=== PATIENT | male | born 1960 ===

== ENCOUNTER 2019-10-01 02:34 | Inpatient (IN) ==
[2019-10-01] MEDS ORDERED: ACETAMINOPHEN 325 MG TABLET PO PRN (05:42)
[2019-10-01] MEDS ORDERED: DEXTROSE 50% 25 GM/50 ML VIAL IV PRN (05:42)
[2019-10-01] MEDS ORDERED: GLUCAGON 1 MG VIAL IM PRN (05:42)
[2019-10-01] MEDS ORDERED: MULTIVITAMIN PO SCH (09:00)
[2019-10-01] MEDS ORDERED: FUROSEMIDE 40 MG TABLET PO SCH (09:00)
[2019-10-01] MEDS: HEPARIN DRIP 25,000 UNITS/500 ML PREMIX IV SCH ×2 (09:26→10:15)
[2019-10-01] MEDS: INSULIN REGULAR 100 UNIT/ML SUBCUT SCH ×4 (09:26→21:57)
[2019-10-01] MEDS: MULTIVITAMIN (CENTRUM) TABLET PO SCH (09:32)
[2019-10-01] MEDS: MINOXIDIL 2.5 MG TABLET PO SCH ×2 (09:32→21:57)
[2019-10-01] MEDS: amLODIPine 10 MG TABLET PO SCH (09:33)
[2019-10-01] MEDS: GABAPENTIN 100 MG CAPSULE PO SCH ×3 (09:33→21:57)
[2019-10-01] MEDS: ASPIRIN EC 81 MG TABLET PO SCH (09:33)
[2019-10-01] MEDS: PANTOPRAZOLE 40 MG TABLET PO SCH (09:33)
[2019-10-01] MEDS: METOPROLOL TARTRATE 25 MG TABLET PO SCH ×2 (09:33→21:58)
[2019-10-01] MEDS: DOCUSATE/SENNA 50-8.6 MG TABLET PO SCH ×2 (09:33→21:57)
[2019-10-01 09:48] LABS: Basophils % 0.4 % (0.0-0.8); Eosinophils # 0.3 10*3/uL (0.0-0.87); Eosinophils % 4.8 % (0.00-10.9); Hematocrit 28.8 VOL% (42.0-52.0); Hemoglobin 9.2 GM/DL (14.0-18.0); Immature Granulocytes % 0.4 %; Immature Granulocytes Absolute 0.02 #; Lymphocytes # 1.8 10*3/uL (1.4-4.0); Lymphocytes % 34.9 % (21.2-54.2); Mean Corpuscular HGB Conc 31.9 GM/DL (32-36); Mean Corpuscular Volume 92.9 FL (87-102); Mean Platelet Volume 9.8 FL (9.6-12.0); Monocytes % 11.1 % (1.7-12.7); Neutrophils % 48.4 % (38.7-73.9); Platelet Count 157 T/CUMM (130-400); Red Cell Distribution Width 14.6 % (9.3-17.3); White Blood Count 5.2 T/CUMM (4-12)
[2019-10-01 10:07] LABS: Calcium 7.9 MG/DL (8.5-10.1); Osmolality,Calculated 302.3 MOS/KG (273-304)
[2019-10-01] MEDS: HEPARIN 5,000 UNIT/1 ML VIAL SUBCUT SCH ×2 (11:58→22:34)
[2019-10-01 12:21] LABS: Troponin I < 0.015 NG/ML (0.00-0.045)
[2019-10-01] MEDS: FUROSEMIDE 40 MG/4 ML VIAL IV SCH (16:23)
[2019-10-01] MEDS: SIMVASTATIN 40 MG TABLET PO SCH (21:57)
[2019-10-02 06:37] LABS: Basophils % 0.6 % (0.0-0.8); Eosinophils # 0.3 10*3/uL (0.0-0.87); Eosinophils % 5.3 % (0.00-10.9); Hematocrit 27.5 VOL% (42.0-52.0); Hemoglobin 8.9 GM/DL (14.0-18.0); Immature Granulocytes % 0.2 %; Immature Granulocytes Absolute 0.01 #; Lymphocytes # 1.3 10*3/uL (1.4-4.0); Lymphocytes % 24.6 % (21.2-54.2); Mean Corpuscular HGB Conc 32.4 GM/DL (32-36); Mean Corpuscular Volume 93.5 FL (87-102); Mean Platelet Volume 9.9 FL (9.6-12.0); Monocytes % 10.3 % (1.7-12.7); Platelet Count 162 T/CUMM (130-400); Red Blood Count 2.94 MC/CUMM (3.8-5.5); Red Cell Distribution Width 14.6 % (9.3-17.3); White Blood Count 5.1 T/CUMM (4-12)
[2019-10-02 06:59] LABS: Bilirubin,Total 1.1 MG/DL (0.2-1.0); Calcium 7.8 MG/DL (8.5-10.1); Osmolality,Calculated 302.1 MOS/KG (273-304); Total Protein 7.3 G/DL (6.4-8.3); Troponin I < 0.015 NG/ML (0.00-0.045)
[2019-10-02] MEDS: INSULIN REGULAR 100 UNIT/ML SUBCUT SCH ×4 (08:15→21:11)
[2019-10-02] MEDS: ASPIRIN EC 81 MG TABLET PO SCH (09:35)
[2019-10-02] MEDS: GABAPENTIN 100 MG CAPSULE PO SCH ×3 (09:35→21:11)
[2019-10-02] MEDS: PANTOPRAZOLE 40 MG TABLET PO SCH (09:35)
[2019-10-02] MEDS: MULTIVITAMIN (CENTRUM) TABLET PO SCH (09:35)
[2019-10-02] MEDS: FUROSEMIDE 40 MG/4 ML VIAL IV SCH ×2 (09:36→16:49)
[2019-10-02] MEDS: amLODIPine 10 MG TABLET PO SCH (09:36)
[2019-10-02] MEDS: MINOXIDIL 2.5 MG TABLET PO SCH ×2 (09:36→21:12)
[2019-10-02] MEDS: METOPROLOL TARTRATE 25 MG TABLET PO SCH ×2 (09:36→21:12)
[2019-10-02] MEDS: DOCUSATE/SENNA 50-8.6 MG TABLET PO SCH ×2 (09:36→21:12)
[2019-10-02] MEDS: HEPARIN 5,000 UNIT/1 ML VIAL SUBCUT SCH ×2 (16:49→23:16)
[2019-10-02] MEDS: SIMVASTATIN 40 MG TABLET PO SCH (21:12)
[2019-10-03] MEDS: INSULIN REGULAR 100 UNIT/ML SUBCUT SCH ×4 (08:00→20:37)
[2019-10-03] MEDS: MINOXIDIL 2.5 MG TABLET PO SCH ×2 (08:01→20:40)
[2019-10-03] MEDS: DOCUSATE/SENNA 50-8.6 MG TABLET PO SCH ×2 (08:01→20:39)
[2019-10-03] MEDS: GABAPENTIN 100 MG CAPSULE PO SCH ×3 (08:01→20:40)
[2019-10-03] MEDS: PANTOPRAZOLE 40 MG TABLET PO SCH (08:01)
[2019-10-03] MEDS: ASPIRIN EC 81 MG TABLET PO SCH (08:01)
[2019-10-03] MEDS: METOPROLOL TARTRATE 25 MG TABLET PO SCH (08:01)
[2019-10-03] MEDS: MULTIVITAMIN (CENTRUM) TABLET PO SCH (08:01)
[2019-10-03] MEDS: amLODIPine 10 MG TABLET PO SCH (08:01)
[2019-10-03] MEDS: FUROSEMIDE 40 MG/4 ML VIAL IV SCH (08:02)
[2019-10-03] MEDS: ALBUTEROL/IPRATROPIUM 3 ML NEB RESP TX SCH ×4 (12:00→23:12)
[2019-10-03] MEDS: HEPARIN 5,000 UNIT/1 ML VIAL SUBCUT SCH ×2 (12:48→23:27)
[2019-10-03] MEDS: methylPREDNISolone SOD SUC 40 MG/1 ML VIAL IV SCH ×2 (12:50→20:38)
[2019-10-03 13:22] LABS: Basophils % 0.6 % (0.0-0.8); Eosinophils # 0.3 10*3/uL (0.0-0.87); Hematocrit 28.4 VOL% (42.0-52.0); Hemoglobin 9.2 GM/DL (14.0-18.0); Immature Granulocytes % 0.3 %; Immature Granulocytes Absolute 0.02 #; Lymphocytes # 1.5 10*3/uL (1.4-4.0); Lymphocytes % 23.7 % (21.2-54.2); Mean Corpuscular HGB Conc 32.4 GM/DL (32-36); Mean Corpuscular Volume 92.8 FL (87-102); Mean Platelet Volume 9.2 FL (9.6-12.0); Neutrophils % 59.4 % (38.7-73.9); Platelet Count 174 T/CUMM (130-400); Red Blood Count 3.06 MC/CUMM (3.8-5.5); Red Cell Distribution Width 14.7 % (9.3-17.3); White Blood Count 6.3 T/CUMM (4-12)
[2019-10-03 13:38] LABS: Calcium 7.9 MG/DL (8.5-10.1); Osmolality,Calculated 304.7 MOS/KG (273-304)
[2019-10-03 13:44] LABS: Troponin I < 0.015 NG/ML (0.00-0.045)
[2019-10-03] MEDS ORDERED: carvediloL 12.5 MG TABLET PO SCH (17:00)
[2019-10-03] MEDS: FUROSEMIDE 40 MG TABLET PO SCH (17:19)
[2019-10-03] MEDS: carvediloL 25 MG TABLET PO SCH (17:19)
[2019-10-03] MEDS: SIMVASTATIN 40 MG TABLET PO SCH (20:40)
[2019-10-04] MEDS: ALBUTEROL/IPRATROPIUM 3 ML NEB RESP TX SCH ×6 (02:15→23:22)
[2019-10-04 02:57] LABS: Apearance,Urine Slightly Hazy (Clear); Bacteria,Urine Occasional /HPF (Few); Bilirubin,Urine Negative (Negative); Blood, Urine Negative (Negative); Glucose,Urine (UA) 150 mg/dL (Negative); Hyaline Casts,Urine 7 /LPF (0-3); Ketones,Urine Negative (Negative); Mucus,Urine Occasional /LPF (Occasional); Nitrite,Urine Negative (Negative); Protein,Urine >=500 MG/DL; RBC,Urine 2 /HPF (0-4); Squamous Epithelial Cell,Urine Occasional /HPF (0-10); Urine Color Yellow (Yellow); Urine Specific Gravity 1.014 (1.001-1.035); Urine Urobilinogen < 2.0 EU/DL (0.2-1.0); WBC,Urine 5 /HPF (0-6)
[2019-10-04] MEDS: methylPREDNISolone SOD SUC 40 MG/1 ML VIAL IV SCH ×3 (03:11→20:52)
[2019-10-04 05:38] LABS: Troponin I < 0.015 NG/ML (0.00-0.045)
[2019-10-04 05:39] LABS: Risk Ratio 2.32
[2019-10-04] MEDS: INSULIN REGULAR 100 UNIT/ML SUBCUT SCH ×4 (08:56→20:52)
[2019-10-04] MEDS: MINOXIDIL 2.5 MG TABLET PO SCH ×2 (09:06→20:52)
[2019-10-04] MEDS: MULTIVITAMIN (CENTRUM) TABLET PO SCH (09:06)
[2019-10-04] MEDS: FUROSEMIDE 40 MG TABLET PO SCH ×2 (09:06→16:35)
[2019-10-04] MEDS: carvediloL 25 MG TABLET PO SCH ×2 (09:06→17:05)
[2019-10-04] MEDS: ASPIRIN EC 81 MG TABLET PO SCH (09:06)
[2019-10-04] MEDS: PANTOPRAZOLE 40 MG TABLET PO SCH (09:07)
[2019-10-04] MEDS: DOCUSATE/SENNA 50-8.6 MG TABLET PO SCH ×2 (09:07→20:53)
[2019-10-04] MEDS: GABAPENTIN 100 MG CAPSULE PO SCH ×3 (09:07→20:52)
[2019-10-04] MEDS: amLODIPine 10 MG TABLET PO SCH (09:07)
[2019-10-04] MEDS: HEPARIN 5,000 UNIT/1 ML VIAL SUBCUT SCH (12:31)
[2019-10-04] MEDS ORDERED: INSULIN LISPRO 100 UNIT/ML SUBCUT SCH (16:30)
[2019-10-04] MEDS: SIMVASTATIN 40 MG TABLET PO SCH (20:52)
[2019-10-05] MEDS: INSULIN REGULAR 100 UNIT/ML SUBCUT SCH ×3 (00:20→11:14)
[2019-10-05] MEDS: HEPARIN 5,000 UNIT/1 ML VIAL SUBCUT SCH ×2 (00:21→11:14)
[2019-10-05] MEDS: ALBUTEROL/IPRATROPIUM 3 ML NEB RESP TX SCH ×2 (02:43→08:10)
[2019-10-05] MEDS: methylPREDNISolone SOD SUC 40 MG/1 ML VIAL IV SCH ×2 (04:41→11:14)
[2019-10-05] MEDS ORDERED: INSULIN GLARGINE 100 UNIT/ML SUBCUT SCH (07:30)
[2019-10-05 07:46] VITALS: BP 124/65
[2019-10-05] MEDS: carvediloL 25 MG TABLET PO SCH (08:11)
[2019-10-05] MEDS: ASPIRIN EC 81 MG TABLET PO SCH (08:11)
[2019-10-05] MEDS: GABAPENTIN 100 MG CAPSULE PO SCH (08:11)
[2019-10-05] MEDS: amLODIPine 10 MG TABLET PO SCH (08:11)
[2019-10-05] MEDS: FUROSEMIDE 40 MG TABLET PO SCH (08:11)
[2019-10-05] MEDS: MULTIVITAMIN (CENTRUM) TABLET PO SCH (08:11)
[2019-10-05] MEDS: DOCUSATE/SENNA 50-8.6 MG TABLET PO SCH (08:11)
[2019-10-05] MEDS: PANTOPRAZOLE 40 MG TABLET PO SCH (08:11)
[2019-10-05] MEDS: MINOXIDIL 2.5 MG TABLET PO SCH (08:11)
[2019-10-05] MEDS ORDERED: AZITHROMYCIN 250 MG TABLET PO SCH (10:00)
== END 2019-10-05 13:12 | disposition home health service (06) | DRG 291 ==
LOC: N.5E → SUATTDRO 04:46
PROVIDERS: ADMIT Internal Medicine; ATTEND Internal Medicine